=== PATIENT | female | born 1980 | race Two or more races ===

== ENCOUNTER 2016-05-06 14:55 | Emergency (ER) | payer OTHER ==
[~2016-05-06] VITALS: Ht 167.6 cm; Wt 85.5 kg
[~2016-05-06 14:55] MED LIST: CLON2TAB PO; FURO20TA PO; SERT-138
[2016-05-06 15:21] VITALS: BP 125/78
== END 2016-05-06 18:35 | disposition home or self-care (01) ==
LOC: ER 15:08
DX: S93.402A Sprain of unspecified ligament of left ankle, initial encounter (principal); X58.XXXA Exposure to other specified factors, initial encounter; Y93.01 Activity, walking, marching and hiking; Y99.8 Other external cause status; Y92.89 Other specified places as the place of occurrence of the external cause; Z76.0 Encounter for issue of repeat prescription; I10 Essential (primary) hypertension; Z87.442 Personal history of urinary calculi; Z87.440 Personal history of urinary (tract) infections; Z88.0 Allergy status to penicillin; Z88.1 Allergy status to other antibiotic agents; Z88.6 Allergy status to analgesic agent
CPT/HCPCS: 73590

== ENCOUNTER 2016-12-01 16:23 | Emergency (ER) | payer OTHER ==
[~2016-12-01] VITALS: Ht 167.6 cm; Wt 72.6 kg
[2016-12-01 16:50] VITALS: BP 141/92
== END 2016-12-01 19:40 | disposition left against medical advice (07) ==
LOC: ER 16:28
DX: R07.89 Other chest pain (principal); F41.9 Anxiety disorder, unspecified; Z53.21 Procedure and treatment not carried out due to patient leaving prior to being seen by health care provider

== ENCOUNTER 2021-02-12 18:46 | Emergency (ER) | payer OTHER ==
[~2021-02-12] VITALS: Ht 167.6 cm; Wt 79.4 kg
[2021-02-12 18:46] VITALS: BP 153/90
[~2021-02-12 18:46] MED LIST changes: +FURO1TAB33 PO; -FURO20TA PO; -SERT-138; +SERT50TA
== END 2021-02-13 01:24 | disposition left against medical advice (07) ==
LOC: ER 18:46
DX: R50.9 Fever, unspecified (principal); R05.9 Cough, unspecified; Z53.21 Procedure and treatment not carried out due to patient leaving prior to being seen by health care provider

== ENCOUNTER 2024-08-26 12:04 | Emergency (ER) | payer MEDICAID, OTHER ==
[~2024-08-26] VITALS: Ht 167.6 cm; Wt 98.5 kg
[~2024-08-26 12:04] MED LIST changes: +CLON-1005 PO; -CLON2TAB PO
[2024-08-26 13:03] VITALS: BP 142/69; PULSE 78; RESP 16; TEMP 98.4; O2SAT 97
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
--- NOTE | 2024-08-26 13:49 | DVH ---
EXAM: XY L WRIST 3+ VIEW XRAY CLINICAL HISTORY: Follow up fracture swollen wrist COMPARISON: None TECHNIQUE: XY L WRIST 3+ VIEW XRAY Findings/Impression: 3 views of the left wrist. There is no evidence of an acute fracture, dislocation, blastic, or lytic lesions. Orthopedic plate and screw fixation of the radius through the 3rd metacarpal. [id number] soft tissue edema.
[2024-08-26] MEDS ORDERED: NAPR-957 PO (14:40)
== END 2024-08-26 14:48 | disposition home or self-care (01) ==
LOC: ER 12:04
DX: S62.101A Fracture of unspecified carpal bone, right wrist, initial encounter for closed fracture (principal); F41.9 Anxiety disorder, unspecified; F32.A Depression, unspecified; I10 Essential (primary) hypertension; Z87.442 Personal history of urinary calculi; Z98.51 Tubal ligation status; Z79.899 Other long term (current) drug therapy; Z88.5 Allergy status to narcotic agent; Z88.0 Allergy status to penicillin; Z88.8 Allergy status to other drugs, medicaments and biological substances; V49.9XXA Car occupant (driver) (passenger) injured in unspecified traffic accident, initial encounter; Y93.89 Activity, other specified; Y92.89 Other specified places as the place of occurrence of the external cause; Y99.8 Other external cause status
CPT/HCPCS: 29125; 73110